=== PATIENT | male | born 2000 | race Caucasian/White ===

== ENCOUNTER 2021-01-12 21:40 | Emergency (ER) | payer SELFPAY ==
[2021-01-12 22:22] LABS: HEMOGLOBIN 15.7 gm/dl (14.0-17.5); RED BLOOD COUNT 4.97 M/UL (4.20-5.50)
[2021-01-12 22:49] LABS: BUN/CREATININE RATIO 13 (0-10)
[2021-01-13] MEDS ORDERED: ZOFRAN ODT 4 MG4 MG SL (00:14)
[2021-01-13] MEDS ORDERED: FLORASTOR250 MG PO (00:14)
== END 2021-01-13 00:18 | disposition home or self-care (01) ==
LOC: ER1 21:40
PROVIDERS: Emergency Medicine
DX: U07.1 COVID-19 (principal); Z88.8 Allergy status to other drugs, medicaments and biological substances
CPT/HCPCS: 80053; 83690; 85025; 99284; U0002